=== PATIENT | male | born 1990 | race Caucasian/White ===

== ENCOUNTER 2018-04-11 10:04 | Emergency (ER) | payer OTHER ==
[2018-04-11] MEDS ORDERED: LIDOCAINE 2% MPF 5 ML VIAL ONE (10:26)
[2018-04-11] MEDS ORDERED: LIDOCAINE 1% MPF 5 ML VIAL ONE (10:28)
[2018-04-11] MEDS ORDERED: DERMABOND SKIN ADHESIVE TOP ONE (10:51)
--- NOTE | 2018-04-11 11:02 | EDPHYS ---
Physician Documentation [facility] Name: Moody Schaefer Age: 27 yrs Sex: Male : 1990 Arrival Date: 04/11/2018 Time: 10:11 Bed 18 Private MD: None, None ED Physician Antony Chaudhari HPI: 04/11 10:56 This 27 yrs old Male presents to ER via Ambulatory with complaints of Cut of rn tips of finger. 10:56 The patient has a laceration related to: working, occurred at work, and there are no rn complicating factors. The laceration(s) is(are) located on the palmar aspect of distal phalanx of right ring finger. Onset: The symptoms/episode began/occurred just prior to arrival. The patient has experienced a previous episode. Reports accidentally cut tip of right ring finger, using steel box toe inserter, states tetanus 2 years ago, went to 2 clinics and didn't have lidocaine, already got it washed out and cleaned. . Historical: - Allergies: 10:27 No Known Allergies; jl7 - Home Meds: 10:27 None [Active]; jl7 - PMHx: 10:27 None; jl7 - PSHx: 10:27 None; jl7 - Immunization history:: Adult Immunizations up to date, Last tetanus immunization: up to date. - Social history:: Smoking status: Patient uses tobacco products, smokes one pack cigarettes per day. - Ebola Screening: : No symptoms or risks identified at this time. - Family history:: not pertinent. - Hospitalizations: : No recent hospitalization is reported. ROS: 10:56 Constitutional: Negative for fever, chills, and weight loss, MS/Extremity: + right 4th rn digit with laceration Exam: 10:56 Constitutional: This is a well developed, well nourished patient who is awake, alert, rn and in no acute distress. MS/ Extremity: Pulses equal, no cyanosis. Neurovascular intact. Full, normal range of motion. + 1.5 cm superficial angulated laceration of tip of right 4th finger, not completely amputated, cannot probe to bone. Vital Signs: 10:27 BP 123 / 66; Pulse 72; Resp 16 S; Temp 97.7(O); Pulse Ox 100% on R/A; Weight 79.38 kg jl7 (R); Height 6 ft. 1 in. (185.42 cm) (R); Pain 6/10; 10:27 Body Mass Index 23.09 (79.38 kg, 185.42 cm) jl7 Laceration: 10:53 Wound Repair of 1.5cm ( 0.6in ) subcutaneous laceration to palmar aspect of distal rn phalanx of right ring finger. Distal neuro/vascular/tendon intact. Anesthesia: Digital block administered with 3 mls of 1% lidocaine. Wound prep: Extensive cleansing by me, Wound irrigation by me, Wound explored moderately. Skin closed with 5 4-0 Prolene using interrupted sutures and sterile technique. Dressed with Neosporin, 4x4's. Patient tolerated well. MDM: 10:16 Patient medically screened. rn 10:56 Differential diagnosis: superficial laceration. Data reviewed: vital signs, nurses rn notes, and as a result, I will discharge patient. Counseling: I had a detailed discussion with the patient and/or guardian regarding: the historical points, exam findings, and any diagnostic results supporting the discharge/admit diagnosis, the need for outpatient follow up, to return to the emergency department if symptoms worsen or persist or if there are any questions or concerns that arise at home. Special discussion: I discussed with the patient/guardian in detail that at this point there is no indication for admission to the hospital. It is understood, however, that if the symptoms persist or worsen the patient needs to return immediately for re-evaluation. 04/11 10:21 Order name: Suture Tray at Bedside; Complete Time: 10:32 rn 04/11 10:21 Order name: Prolene, Sutures; Complete Time: 10:32 rn Administered Medications: 10:29 Drug: Lidocaine (1 %) 1 vials {Note: administered by Dr. Chaudhari.} Volume: 5 ml; Route: jl7 Infiltration; 10:32 Follow up: Response: No adverse reaction jl7 Disposition: 04/11/18 11:01 Discharged to Home. Impression: Superficial laceration of right 4th fingertip. - Condition is Stable. - Discharge Instructions: Laceration Care, Adult. - Prescriptions for Augmentin 875- 125 mg Oral Tablet - take 1 tablet by ORAL route every 12 hours for 10 days; 20 tablet. - Medication Reconciliation Form, Thank You Letter, Antibiotic Education, Prescription Opioid Use, Work release form, Family Work Release form. - Follow up: Private Physician; When: 14 days; Reason: Staple/Suture removal. - Problem is new. - Symptoms have improved. Signatures: Antony Chaudhari MD MD rn Brianna Brar RN RN tw2 Johann Chambers RN RN jl7 Corrections: (The following items were deleted from the chart) 11:06 11:01 04/11/2018 11:01 Discharged to Home. Impression: Superficial laceration of right tw2 4th fingertip. Condition is Stable. Forms are Medication Reconciliation Form, Thank You Letter, Antibiotic Education, Prescription Opioid Use. Follow up: Private Physician; When: 14 days; Reason: Staple/Suture removal. Problem is new. Symptoms have improved. rn
--- NOTE | 2018-04-11 11:02 | ER ---
Nurse's Notes [facility] Name: Moody Schaefer Age: 27 yrs Sex: Male : 1990 Arrival Date: 04/11/2018 Time: 10:11 Bed 18 Private MD: None, None Diagnosis: Superficial laceration of right 4th fingertip Presentation: 04/11 10:22 Presenting complaint: Patient states: sliced tip of right ring finger almost off about jl7 45 min. ago. Transition of care: patient was not received from another setting of care. Onset of symptoms was April 11, 2018. Risk Assessment: Do you want to hurt yourself or someone else? Patient reports no desire to harm self or others. Initial Sepsis Screen: Does the patient meet any 2 criteria? No. Patient's initial sepsis screen is negative. Does the patient have a suspected source of infection? No. Patient's initial sepsis screen is negative. Care prior to arrival: None. 10:22 Method Of Arrival: Ambulatory 7 10:22 Acuity: YARITZA 4 jl7 Triage Assessment: 10:27 General: Appears in no apparent distress. uncomfortable, Behavior is calm, cooperative, jl7 appropriate for age. Pain: Complains of pain in palmar aspect of distal phalanx of right ring finger Pain does not radiate. Pain currently is 6 out of 10 on a pain scale. EENT: No signs and/or symptoms were reported regarding the EENT system. Neuro: Level of Consciousness is awake, alert, obeys commands, Oriented to person, place, time, situation. Cardiovascular: Patient's skin is warm and dry. Respiratory: Airway is patent Respiratory effort is even, unlabored, Respiratory pattern is regular, symmetrical. GI: No signs and/or symptoms were reported involving the gastrointestinal system. : No signs and/or symptoms were reported regarding the genitourinary system. Derm: Skin is pink, warm \T\ dry. Musculoskeletal: No signs and/or symptoms reported regarding the musculoskeletal system. Injury Description: Avulsion sustained to palmar aspect of distal phalanx of right ring finger is partial was sustained 30-60 minutes ago. Historical: - Allergies: 10: No Known Allergies; jl7 - Home Meds: 10:27 None [Active]; jl7 - PMHx: 10: None; jl7 - PSHx: 10:27 None; jl7 - Immunization history:: Adult Immunizations up to date, Last tetanus immunization: up to date. - Social history:: Smoking status: Patient uses tobacco products, smokes one pack cigarettes per day. - Ebola Screening: : No symptoms or risks identified at this time. - Family history:: not pertinent. - Hospitalizations: : No recent hospitalization is reported. Screenin:30 Abuse screen: Denies threats or abuse. Denies injuries from another. Nutritional jl7 screening: No deficits noted. Tuberculosis screening: No symptoms or risk factors identified. Fall Risk None identified. Assessment: 10:30 General: See triage assessment. jl7 11:04 Reassessment: Patient appears in no apparent distress at this time. No changes from tw2 previously documented assessment. Patient and/or family updated on plan of care and expected duration. Pain level reassessed. Patient is alert, oriented x 3, equal unlabored respirations, skin warm/dry/pink. Vital Signs: 10:27 BP 123 / 66; Pulse 72; Resp 16 S; Temp 97.7(O); Pulse Ox 100% on R/A; Weight 79.38 kg jl7 (R); Height 6 ft. 1 in. (185.42 cm) (R); Pain 6/10; 10:27 Body Mass Index 23.09 (79.38 kg, 185.42 cm) jl7 ED Course: 10:11 Patient arrived in ED. mr 10:11 None, None is Private Physician. mr 10:16 Johann Chambers, RN is Primary Nurse. jl7 10:16 Antony Chaudhari MD is Attending Physician. rn 10:26 Triage completed. jl7 10:27 Arm band placed on right wrist. jl7 10:30 Patient has correct armband on for positive identification. Bed in low position. Call jl7 light in reach. Side rails up X 1. 10:30 Assist provider with laceration repair on palmar aspect of distal phalanx of right ring jl7 finger that was 2.5 cm. or less using sutures. Set up tray. Performed by Antony Chaudhari MD Dressed with 4X4s, Neosporin, Patient tolerated well. 11:05 Patient did not have IV access during this emergency room visit. tw2 Administered Medications: 10:29 Drug: Lidocaine (1 %) 1 vials {Note: administered by Dr. Chaudhari.} Volume: 5 ml; Route: jl7 Infiltration; 10:32 Follow up: Response: No adverse reaction jl7 Outcome: 11:01 Discharge ordered by . rn 11:05 Discharged to home ambulatory, with significant other. tw2 11:05 Condition: stable 11:05 Discharge instructions given to patient, significant other, Instructed on discharge instructions, follow up and referral plans. medication usage, wound care, suture removal in 14 days Demonstrated understanding of instructions, follow-up care, medications, wound care, Prescriptions given X 1. 11:06 Patient left the ED. tw2 Signatures: Jennifer Gay Roman, MD MD rn Brianna Brar RN RN tw2 Johann Chambers RN RN jl7
== END 2018-04-11 11:06 | disposition home or self-care (01) ==
LOC: ER 10:04
PROC: 0JQJ0ZZ Repair Right Hand Subcutaneous Tissue and Fascia, Open Approach (ICD-10-PCS; principal; 2018-04-11)
DX: S61.214A Laceration without foreign body of right ring finger without damage to nail, initial encounter (principal); W27.8XXA Contact with other nonpowered hand tool, initial encounter; Y92.69 Other specified industrial and construction area as the place of occurrence of the external cause; F17.210 Nicotine dependence, cigarettes, uncomplicated
CPT/HCPCS: 99283